=== PATIENT | female | born 1940 | race Caucasian/White ===

== ENCOUNTER → 2017-05-21 | Outpatient (CLI) | payer MEDICARE ==
[~2017-05-21] MED LIST: ALBU0.63 NEB; ALPR0.5T3 PO; ATOR20TA15 PO; CARV6.252 PO; CLOP75TA PO; ESCI10TA PO; FLUT1INH INH; KETO0.5S2 EACH EYE; LEVO112T2 PO; LEVO125T4 PO; LISI2.5T3 PO; LORA-373 PO
[2017-05-21 10:40] LABS: AUTOMATED NEUTROPHIL # 4.5 TH/MM3 (1.8-7.7); BASOPHIL # 0.1 TH/MM3 (0-0.2); BASOPHIL % 0.8 % (0.0-2.0); EOSINOPHIL # 0.1 TH/MM3 (0-0.4); EOSINOPHIL % 1.8 % (0.0-4.0); HEMATOCRIT 36.3 % (35.0-46.0); HEMO FLAGS DIFF FINAL; LYMPH % 21.7 % (9.0-44.0); LYMPHOCYTE # 1.4 TH/MM3 (1.0-4.8); MEAN CELL VOLUME 81.5 FL (80.0-100.0); MEAN CORPUSCULAR HEMOGLOBIN 26.7 PG (27.0-34.0); MEAN CORPUSCULAR HGB CONC 32.7 % (32.0-36.0); MONO % 7.3 % (0.0-8.0); NEUT % 68.4 % (16.0-70.0); PLATELET COUNT 311 TH/MM3 (150-450); RED BLOOD COUNT 4.45 MIL/MM3 (4.00-5.30); WHITE BLOOD COUNT 6.6 TH/MM3 (4.0-11.0)
[2017-05-21 10:52] LABS: APTT (PATIENT) 29.9 SEC (24.3-30.1); INTERNATIONAL NORMALIZED RATIO 0.9 RATIO; PROTHROMBIN TIME - PATIENT 10.4 SEC (9.8-11.6)
[2017-05-21 10:58] LABS: BACTERIA, URINE RARE /hpf; BLOOD, URINE NEG (NEG); COMMENT (UR) CULT NOT INDICATED; CULTURE IF INDICATED CULT NOT INDICATED; GLUCOSE,URINE NEG (NEG); KETONE, URINE TRACE mg/dL (NEG); MUCUS URINE FEW /lpf (OCC); NITRITE,URINE NEG (NEG); SQUAMOUS EPITHELIAL CELL URINE 2 /hpf (0-5); URINE COLOR YELLOW (YELLW/STRAW)
[2017-05-21 11:00] LABS: WESTERGREN SEDIMENTATION RATE 22 mm/hr (0-30)
[2017-05-21 11:16] LABS: ANION GAP 5 MEQ/L (5-15); AST (GOT) 14 U/L (15-37); BICARBONATE 28.1 MEQ/L (21.0-32.0); BLOOD UREA NITROGEN 16 MG/DL (7-18); CHLORIDE 104 MEQ/L (98-107); GLOMERULAR FILTRATION RATE 93 ML/MIN (>89); GLUCOSE,FASTING 88 MG/DL (74-99); POTASSIUM 3.9 MEQ/L (3.5-5.1); SODIUM (NA) 137 MEQ/L (136-145)
[2017-05-21 11:20] LABS: ALKALINE PHOSPHATASE 108 U/L (45-117); ALT (GPT) 15 U/L (10-53); TOTAL BILIRUBIN ADULT 0.9 MG/DL (0.2-1.0)
--- NOTE | 2017-05-21 13:03 | RADRPT ---
EXAM DATE/TIME: 05/21/2017 12:27 [facility] COMPARISON: No previous studies available for comparison. INDICATIONS : Evaluate for penumonia, pneumothorax, or communicable disease. MEDICAL HISTORY : None. SURGICAL HISTORY : None. ENCOUNTER: Initial ACUITY: 1 day PAIN SCORE: 0/10 LOCATION: chest FINDINGS: PA and lateral views of the chest demonstrate the lungs to be symmetrically aerated without evidence of mass, infiltrate or effusion. Surgical clips are noted in the right axilla. The cardiomediastinal contours are unremarkable. Osseous structures are intact. CONCLUSION: 1. No acute cardiopulmonary disease. Erickson Ralph MD on May 21, 2017 at 13:01 Board Certified Radiologist. This report was verified electronically.
== END ==
LOC: CPRE 09:05
PROVIDERS: ATTEND Orthopaedic Surgery Sports Medicine
DX: Z01.810 Encounter for preprocedural cardiovascular examination (principal); Z01.811 Encounter for preprocedural respiratory examination; Z01.812 Encounter for preprocedural laboratory examination; Z01.818 Encounter for other preprocedural examination; Z96.60 Presence of unspecified orthopedic joint implant; Z79.01 Long term (current) use of anticoagulants; M17.11 Unilateral primary osteoarthritis, right knee; M25.50 Pain in unspecified joint
CPT/HCPCS: 36415; 71020; 80053; 81001; 85025; 85610; 85652; 85730

== ENCOUNTER 2017-06-03 11:46 | Day surgery (SDC) | payer MEDICARE ==
[~2017-06-03] VITALS: Ht 154.9 cm; Wt 74.1 kg
[~2017-06-03 11:46] MED LIST changes: -ALBU0.63 NEB; -ATOR20TA15 PO; -FLUT1INH INH; -KETO0.5S2 EACH EYE; -LEVO112T2 PO; -LORA-373 PO
[2017-06-03] MEDS ORDERED: IOHEXOL 350 MG/ML 10 ML VIAL (for RAD DIAG) IVCONTRAST ONE (11:47)
[2017-06-03 12:05] VITALS: BP 141/67; PULSE 81; RESP 17; TEMP 98; O2SAT 99
[2017-06-03] MEDS ORDERED: ATOR20TA15 PO (12:37)
[2017-06-03] MEDS ORDERED: ALBU0.63 NEB (12:37)
[2017-06-03] MEDS ORDERED: FLUT1INH INH (12:37)
[2017-06-03] MEDS ORDERED: KETO0.5S2 EACH EYE (12:37)
[2017-06-03] MEDS ORDERED: LEVO112T2 PO (12:37)
[2017-06-03] MEDS ORDERED: LORA-373 PO (12:37)
[2017-06-03 12:39] LABS: AUTOMATED NEUTROPHIL # 4.3 TH/MM3 (1.8-7.7); BASOPHIL # 0.1 TH/MM3 (0-0.2); EOSINOPHIL # 0.1 TH/MM3 (0-0.4); EOSINOPHIL % 1.5 % (0.0-4.0); HEMATOCRIT 34.6 % (35.0-46.0); HEMO FLAGS DIFF FINAL; LYMPH % 23.8 % (9.0-44.0); LYMPHOCYTE # 1.6 TH/MM3 (1.0-4.8); MEAN CELL VOLUME 80.9 FL (80.0-100.0); MEAN CORPUSCULAR HEMOGLOBIN 26.5 PG (27.0-34.0); MEAN CORPUSCULAR HGB CONC 32.8 % (32.0-36.0); MONO % 7.8 % (0.0-8.0); NEUT % 65.9 % (16.0-70.0); PLATELET COUNT 273 TH/MM3 (150-450); RED BLOOD COUNT 4.28 MIL/MM3 (4.00-5.30); RED CELL DISTRIBUTION WIDTH 14.8 % (11.6-17.2); WHITE BLOOD COUNT 6.5 TH/MM3 (4.0-11.0)
[2017-06-03 12:51] LABS: APTT (PATIENT) 29.1 SEC (24.3-30.1); INTERNATIONAL NORMALIZED RATIO 0.9 RATIO; PROTHROMBIN TIME - PATIENT 10.4 SEC (9.8-11.6)
[2017-06-03 12:55] LABS: BICARBONATE 26.1 MEQ/L (21.0-32.0); POTASSIUM 4.1 MEQ/L (3.5-5.1)
[2017-06-03] MEDS ORDERED: diphenhydrAMINE HCL 50 MG CAP PO SCH (13:15)
[2017-06-03] MEDS ORDERED: NS 1000P @30 MLS/HR (KVO) IV SCH (13:15)
[2017-06-03] MEDS ORDERED: HEPARIN-NS/PF INJ 1,000 ML ONE (13:22)
[2017-06-03] MEDS ORDERED: NITROGLYCERIN INJ 5 ML ONE (13:23)
[2017-06-03] MEDS ORDERED: MIDAZOLAM HCL 2 MG/2 ML VIAL ONE ×2 (13:23→13:37)
[2017-06-03] MEDS ORDERED: HEPARIN SODIUM - IV 10,000 UNITS/10 ML VIAL ONE (13:23)
[2017-06-03] MEDS ORDERED: VERAPAMIL HCL 5 MG/2 ML VIAL ONE (13:23)
--- NOTE | 2017-06-03 13:23 | RADRPT ---
EXAM DATE/TIME: 06/03/2017 12:54 [facility] COMPARISON: CHEST PA & LAT, May 21, 2017, 12:27. INDICATIONS : Evaluate for pneumonia, pneumothorax or communicable disease. Pre op for aortic catheter workup MEDICAL HISTORY : Myocardial infarction. hx of right breast cancer SURGICAL HISTORY : Coronary artery stent. ENCOUNTER: Initial ACUITY: 1 day PAIN SCORE: 0/10 LOCATION: Bilateral chest FINDINGS: Single portable frontal view of the chest shows mild chronic interstitial changes within the bases. T hese are stable. No infiltrate or effusion. Heart is at the upper limits of normal in terms of size. Surgical clips involve the right axilla. Mildly gas distended loops of small bowel within the visuali zed portions of the upper abdomen. CONCLUSION: 1. No acute cardiopulmonary disease. 2. Mildly gas distended loops of small bowel within the visualized portions of the upper abdomen. Adam Rachel Jr., MD on June 03, 2017 at 13:15 Board Certified Radiologist. This report was verified electronically.
[2017-06-03] MEDS ORDERED: IOHEXOL 350 MG/ML 100 ML BTL (for Cath Lab) OTHER ONE (13:35)
[2017-06-03] MEDS ORDERED: IOHEXOL 350 MG/ML 50 ML BTL (for Cath Lab) OTHER ONE (13:35)
[2017-06-03] MEDS ORDERED: CLOPIDOGREL 300 MG TAB ONE (14:19)
[2017-06-03] MEDS ORDERED: ASPIRIN 81 MG CHEW TAB ONE (14:19)
[2017-06-03 20:49] LABS: BLOOD, URINE TRACE (NEG); COMMENT (UR) CULTURE INDICATED; CULTURE IF INDICATED CULTURE INDICATED; GLUCOSE,URINE NEG (NEG); KETONE, URINE TRACE mg/dL (NEG); MUCUS URINE FEW /lpf (OCC); NITRITE,URINE NEG (NEG); PH, URINE 6.5 (5.0-8.5); SQUAMOUS EPITHELIAL CELL URINE 37 /hpf (0-5); TRANSITIONAL EPI CELLS, URINE 1 /hpf; URINE COLOR LIGHT-YELLOW (YELLW/STRAW)
--- NOTE | 2017-06-04 08:04 | RADRPT ---
EXAM DATE/TIME: 06/03/2017 17:56 [facility] COMPARISON: No previous studies available for comparison. INDICATIONS : Pre-operative TAVR. IV CONTRAST: 99 cc Omnipaque 350 (iohexol) IV RADIATION DOSE: 42.99 CTDIvol (mGy) MEDICAL HISTORY : Carcinoma, breast. Myocardial infarction. Chronic obstructive pulmonary disease. SURGICAL HISTORY : Coronary artery stent. ENCOUNTER: Initial ACUITY: 1 day PAIN SCALE: 2/10 LOCATION: Bilateral chest TECHNIQUE: Volumetric scanning was performed using a multi-row detector CT scanner. The data was post processed with a variety of visualization algorithms including full volume maximum intensity projection, multi -planar sliding thin slab reformation, curved planar reformation, and surface rendering techniques. Using automated exposure control and adjustment of the mA and/or kV according to patient size, radiat ion dose was kept as low as reasonably achievable to obtain optimal diagnostic quality images. DIC OM format image data is available electronically for review and comparison. FINDINGS: Thoracic/abdominal aorta: 3 cusps are seen involving the aortic valve. These are somewhat thickened with areas of calcification associated with them. The thoracic and abdominal aorta is normal in caliber. Sinus of Valsalva measu res 3.1 cm, sinotubular junction 2.4 cm, mid tubular 3.2 cm, proximal descending 2.3 cm, distal desce nding 2.3 cm, and infrarenal 1.7 cm in diameter. In-Flow vessels are patent. A four-vessel arch is se en with a t or artery arising from the arch. Calcified plaque involving the origin of the left renal artery generate a 30-40% stenosis. Arch vessels are otherwise patent. The celiac, SMA, SCARLETT, renal art eries, and In-Flow vessels are patent. Heart and mediastinum: The heart is normal in size. No pericardial effusion. Significant coronary artery atherosclerotic gayla cifications. Pulmonary arteries are normal in caliber. No mediastinal mass or adenopathy. Lung parenchyma: No effusions or pneumothoraces. Chronic interstitial changes. A calcified granuloma is seen within th e left lower lobe. Other structures: Diffuse hepatic steatosis. Gallbladder is unremarkable. Small granulomatous calcifications involving the spleen. Colonic diverticulosis most pronounced within the sigmoid region. No acute inflammation. Bilateral femoral neck screws. Old trauma involving the pubic symphysis bilaterally. A degenerative l umbar spine. CONCLUSION: 1. 3 cusps involving aortic valve which are somewhat thickened and have calcifications associated wit h them. 2. Thoracoabdominal aorta is normal in caliber throughout. 3. 4 vessels involving the arch with the left vertebral artery arising from the arch. There is a calc ified plaque generating a 40% stenosis of the left vertebral artery origin. The right vertebral arter y is patent within its visualized aspect. 4. Chronic interstitial changes along the lungs. 5. Prior granulomatous disease. 6. Hepatic steatosis. 7. Sigmoid diverticulosis. Adam Rachel Jr., MD on June 04, 2017 at 7:52 Board Certified Radiologist. This report was verified electronically.
--- NOTE | 2017-06-04 11:57 | ECHRPT ---
Indication: PRE TAVR AOV CONCLUSIONS Normal left ventricular size. Wall thickness is normal. The left ventricular systolic function is severely reduced with an estimated ejection fraction in th e range of 35-40%. There is diffuse global hypokinesis with distinct regional wall motion abnormalities. The left atrial size is moderately dilated. Moderate mitral valve regurgitation. Moderate mitral annular calcification. Lkja-xz-zxrmkqpf aortic valve regurgitation. Severe aortic valve stenosis. There is mild tricuspid valve regurgitation. There is estimated moderate pulmonary hypertension present (range 50-60 mmHg). BP: 141 / 67 HR: Rhythm: Sinus MEASUREMENTS (Male / Female) Normal Values Technical Quality:Fair 2D ECHO LV Diastolic Diameter PLAX 5.0 cm 4.2 - 5.9 / 3.9 - 5.3 cm LV Systolic Diameter PLAX 4.6 cm IVS Diastolic Thickness 0.8 cm 0.6 - 1.0 / 0.6 - 0.9 cm LVPW Diastolic Thickness 0.8 cm 0.6 - 1.0 / 0.6 - 0.9 cm LV Relative Wall Thickness 0.3 LVOT Diameter 1.9 cm Aortic Root Diameter 2.3 cm LA Systolic Diameter LX 3.5 cm 3.0 - 4.0 / 2.7 - 3.8 cm DOPPLER AV Peak Velocity 401.0 cm/s AV Peak Gradient 64.3 mmHg AV Mean Gradient 36.0 mmHg AV Velocity Time Integral 87.5 cm LVOT Peak Velocity 88.4 cm/s LVOT Peak Gradient 3.1 mmHg LVOT Velocity Time Integral 17.9 cm AV Area Cont Eq vti 0.6 cm AV Area Cont Eq pk 0.6 cm Mitral E Point Velocity 110.0 cm/s Mitral A Point Velocity 27.1 cm/s Mitral E to A Ratio 4.1 LV E' Lateral Velocity 2.5 cm/s Mitral E to LV E' Lateral Ratio 43.5 LV E' Septal Velocity 3.7 cm/s Mitral E to LV E' Septal Ratio 29.7 TR Peak Velocity 328.0 cm/s TR Peak Gradient 43.0 mmHg Right Atrial Pressure 10.0 mmHg Pulmonary Artery Systolic Pressu 53.0 mmHg Right Ventricular Systolic Press 53.0 mmHg PV Peak Velocity 75.9 cm/s PV Peak Gradient 2.3 mmHg FINDINGS LEFT VENTRICLE Normal left ventricular size. Wall thickness is normal. The left ventricular systolic function is severely reduced with an estimated ejection fraction in th e range of 25-30%. There is diffuse global hypokinesis with distinct regional wall motion abnormalities. LEFT ATRIUM The left atrial size is moderately dilated. MITRAL VALVE Moderate mitral valve regurgitation. Moderate mitral annular calcification. AORTIC VALVE Aortic valve sclerosis is present. Qfiu-[id number]-[id number] aortic valve regurgitation. Moderate to severe aortic valve stenosis. TRICUSPID VALVE There is mild tricuspid valve regurgitation. There is estimated moderate pulmonary hypertension present (range 50-60 mmHg). Tomas Kothari MD (Electronically Signed) Final Date:04 June 2017 11:57
--- NOTE | 2017-06-04 17:24 | PD.CAR.PN ---
CVT Progress Note Subjective/Hospital Course: sts data discussed with pt RISK SCORES About the STS Risk Calculator Procedure: AV Replacement Risk of Mortality: 3.532% Morbidity or Mortality: 17.465% Long Length of Stay: 8.629% Short Length of Stay: 28.029% Permanent Stroke: 1.595% Prolonged Ventilation: 13.218% DSW Infection: 0.305% Renal Failure: 3.528% Reoperation: 7.228% Result Diagram: 06/03/17 1212 06/03/17 1212 Margarita Cobos Jun 04, 2017 17:24
--- NOTE | 2017-06-07 08:04 | MB ---
cc: MATHEW PALOMARES DATE OF CONSULTATION: 06/21/2017 DATE OF : 1940 REASON FOR CONSULTATION: 77-year-old female patient of Dr. Hyacinth Brunson, Dr. Frazier. The patient presented because of history of shortness of breath, fatigue over the past year, also some chest pressure 6 months, worse in the last few weeks. She was apparently scheduled for right knee surgery was cancelled she needed clearance by cardiology. She underwent echocardiogram which at that time showed, aortic stenosis with a valve area of 0.9. Repeat echo was done on the which showed severe aortic stenosis with a valve area 0.6. Peak gradient of 64, mean gradient of 36, also ejection fraction of 25 to 30% diffuse global high hypokinesis some left atrial size moderately dilated, moderate mitral valve regurgitation. She also had some mild to moderate aortic insufficiency and some mild tricuspid regurgitation. Her pulmonary pressures were in the 50-60 range. She underwent cardiac cath by Dr. Frazier and had an 80% RCA occlusion underwent drug-eluting stent to the RCA. We have been consulted to evaluate candidacy for aortic valve replacement versus transaortic valve replacement. Her frailty score was 2/4. PAST MEDICAL HISTORY: Significant for 1. Coronary artery disease. 2. She has had prior stenting at the RCA, LAD and circ. 3. She has history of transient ischemic attack. 4. History of breast cancer. Where she had a right lumpectomy 30 years ago with chemo and radiation. 5. She has had bilateral hip surgery 6. Chronic obstructive pulmonary disease. 7. Depression 8. Diverticulitis. 9. Fatigue. 10. Gastroesophageal reflux disease. 11. Hyperlipidemia. 12. Hypertension. 13. Hypothyroidism. 14. Ischemic cardiomyopathy 15. Mitral regurgitation. 16. History of prior Non-STEMI. ALLERGIES CODEINE SIMVASTATIN HOME MEDICATIONS home meds include 1. Atorvastatin 2. Breo 3. Elliptic 4. Coreg 5. Plavix 6. Lexapro 7. Levothyroxine. 8. Lisinopril. 9. Lorazepam. FAMILY HISTORY Mother from an myocardial infarction. SOCIAL HISTORY Patient , two children Remote tobacco. No alcohol. Retired teacher. She is somewhat inactive because of her chronic right knee pain. She does however drive and cook. REVIEW OF SYSTEMS Review of systems in general no night sweats, fever, heat and cold intolerance. SKIN: No psoriasis, itching or hives. HEAD, EARS, EYES, NOSE, AND THROAT: No blurred vision, hearing loss. RESPIRATORY: Positive first recent shortness of breath. CARDIOVASCULAR: As above in HPI. GASTROINTESTINAL: No diarrhea, vomiting. GENITOURINARY: No burning frequency, urgency. CENTRAL NERVOUS SYSTEM: Positive for history of TIA, ENDOCRINOLOGY: No history of diabetes. Positive for hypothyroidism. PHYSICAL EXAMINATION: VITAL SIGNS: On exam blood pressure 140/60, heart rate of 80, temperature 98.0. IN GENERAL: Patient is awake, alert, no acute distress head is normocephalic, atraumatic. HEAD, EYES, EARS, NOSE, AND THROAT: Pupils equal and reactive. Oral mucosa pink, moist. NECK: Supple. No JVD. Heart sounds S1-S2 regular rate and rhythm. There is a inaudible 3/6 systolic murmur best noted left sternal border. LUNGS: Clear to auscultation. No wheezes, rales or rhonchi. ABDOMEN: Soft, nontender. No masses or organomegaly. EXTREMITIES: No cyanosis, clubbing or edema. RADIOLOGY: 2-D echo as above in the in the HPI. Her EKG shows a sinus rhythm with a left bundle-branch block. Her PFT shows an FEV-1 of 1.04. IMPRESSION This is a very pleasant 77-year-old female with severe aortic stenosis also moderate mitral regurgitation valve area 0.6. Her risk factors include history of coronary artery disease, ischemic cardiomyopathy with EF of 20-25%. Frailty score of 2/4. STS risk mortality 3.532. RECOMMENDATIONS: At this time recommendation is for evaluation for transaortic valve replacement to her low ejection fraction, Garza class three heart failure and further evaluation as per our partner Dr. Deanna Shetty. DICTATED BY: YESSICA Massey-Jonah MD LUIS Issa/cristina /5:27 PM /8:00 AM
--- NOTE | 2017-06-08 10:09 | RSPPFT ---
DATE OF PROCEDURE: 06/03/17 COMMENTS: Spirometry with FVC of 1.5 predicted 2.6, FEV1 of 1.0 predicted 1.8, FEV1/FVC ratio 68% predicted 80%. IMPRESSION: On the basis of the above, patient has an obstructive lung defect. Post-bronchodilator values and lung volumes have not been measured.
--- NOTE | 2017-06-09 12:57 | MB ---
cc: MARIA LUZ KRAMER M.D., PEDRO KHANNA, SOHIT K. MD DATE OF CONSULTATION: 06/09/[address] Frazier REASON FOR CONSULTATION Surgical opinion regarding aortic valve replacement therapy. HISTORY OF PRESENT ILLNESS Ms. Cuevas is a very pleasant 77-year-old female with a known history of coronary artery disease, status post previous stenting of the coronary vessels, who now presents with progressive symptoms of shortness of breath. She has undergone further workup including an echocardiogram which revealed severe aortic stenosis with an aortic valve area of 0.6 cm2 with a mean gradient of 36 and ejection fraction of 25-30% with diffuse global hypokinesis. Based on this she was seen by Dr. Frazier and by Dr. Jose and had undergone further workup regarding aortic valve replacement therapy including surgical versus TAVR therapy. I am now seeing her in consultation for a second surgical opinion. At present time she is relatively comfortable, resting in her bed with no acute decompensation. PAST MEDICAL HISTORY 1. Significant coronary disease status post prior stenting as described above. 2. History of TIA. 3. History of breast cancer. 4. History of bilateral hip surgeries. 5. COPD. 6. Depression. 7. Diverticulitis. 8. Fatigue. 9. GERD. 10. Hyperlipidemia. 11. Hypertension. 12. Hypothyroidism. 13. Ischemic cardiomyopathy with severe left ventricular dysfunction. 14. Prior history of acute myocardial infarction. PAST SURGICAL HISTORY Significant for: 1. Hip surgeries. 2. Breast lumpectomy followed by chemoradiation. ALLERGIES The patient reports allergies to CODEINE AND SIMVASTATIN. MEDICATIONS home medications include: 1. Atorvastatin. 2. Brio. 3. Aliptic. 4. Coreg. 5. Plavix. 6. Lexapro. 7. Levothyroxine. 8. Lisinopril. 9. Lorazepam. FAMILY HISTORY Significant for coronary artery disease. SOCIAL HISTORY Denies any history of smoking, alcohol use or illicit drug use. REVIEW OF SYSTEMS Review of systems as above. All other parameters are negative. PHYSICAL EXAMINATION VITAL SIGNS: Today she is 154 cm tall, weighs 74 kilos. Blood pressure is 117/66 with a heart rate of 78 which is regular, respiratory rate 18 and she is afebrile. HEENT: Normocephalic, atraumatic. Pupils are round and reactive. Extraocular muscles intact. No cervical lymphadenopathy, carotid bruits or JVD. CARDIOVASCULAR: Regular rate and rhythm. Normal S1-S2 without gallops or rubs. She does have a 4/6 systolic ejection murmur at the right parasternal border. LUNGS: Clear to auscultation bilaterally with good exchange. ABDOMEN: Soft, nontender, nondistended. Normoactive bowel sounds. No hepatosplenomegaly. Bilateral femoral pulses are palpable with no palpable pedal pulses. No cyanosis, clubbing, edema, no venous varicosities. NEUROLOGIC: Neurologically intact with no focal deficits. IMPRESSION 1. Severe symptomatic aortic stenosis. 2. Ischemic cardiomyopathy with severe left ventricular dysfunction. 3. Coronary artery disease. 4. Hyperlipidemia. 5. TIA. 6. Hypertension. 7. COPD. PLAN The clinical, echo as well as angiographic findings were discussed in detail with the patient and her daughter today. Therapeutic options available again including a surgical AVR versus TAVR were discussed and detailed. I agree that she is intermediate risk for surgical intervention and given her frailty and significant medical comorbidities as well as ventricular dysfunction, I think she will maximally benefit from TAVR therapy. They understand, they are provided information and are in agreement with the plan. We will proceed with TAVR as scheduled previously. Thank you for allowing me to participate in this patient's care. Deanna MELGOZA /11:46 AM /12:32 PM
--- NOTE | 2017-06-10 11:37 | MA ---
cc: WILFRID RIOS DATE: 06/03/2017 1938 PROCEDURE PERFORMED 1. Left heart catheterization. 2. Selective right and left coronary angiography. 3. Successful PCI/LOPEZ to ostial right coronary artery. INDICATION Chest pain, shortness of breath, severe symptomatic aortic stenosis, preoperative evaluation. APPROACH Right transradial. DESCRIPTION OF PROCEDURE Consent is signed. The patient was prepped and draped in sterile fashion, using 1% lidocaine for local anesthesia and a micropuncture kit, a 6-[place] sheath was inserted into the right radial artery. Antispasmodic cocktail was given, then selective right and left coronary angiography was performed with a JR-4 and a JL-4 diagnostic catheters. Angiography was taken in multiple views. We identified significant lesion in the proximal to ostial segment of the right coronary artery where previous stent was placed and this lesion was amendable to intervention for which we proceeded to fix. IV heparin was given for anticoagulation. The right coronary artery was engaged with a 3DRC guide. The vessel was wired with a run-through wire which was anchored in the distal PDA. We proceeded then with pre-dilating the vessel with a 2.5 12 balloon to high atmospheres and this was followed by insertion and deployment of a 2.75 12 drug-eluting stent which was postdilated with a stent balloon and the overlapping stent in the ostial right coronary artery was also ballooned with a stent balloon. Final angiographic views revealed good stent position and expansion with DOMINIK III flow and nonobstructing coronary artery disease. The patient tolerated the procedure well without complications. Estimated blood loss less than 30 ccs. Total contrast used was 75 ccs. CONCLUSION 1. Successful PCI to proximal right coronary artery in the setting of in stent restenosis. 2. Severe symptomatic aortic stenosis. RECOMMENDATIONS The patient will be transferred to the [facility] for post cath care. She will be started on aspirin and Plavix. She will continue a TAVR workup as planned and will be getting IV hydration for the next 4 hours. If the patient remains stable she will be able to be discharged home today with follow up with cardiology in a week. Thank you for the opportunity to take part in the care of this patient. Further therapy to be determined Wilfrid Rios MD SYSTEM SUPPORT ANALYST/TLL /11:08 AM /11:17 AM
== END 2017-06-03 19:00 | disposition home or self-care (01) ==
LOC: HDOC 11:46 → HDIC 11:48 → HDOC 19:00
PROVIDERS: ATTEND Radiology Vascular & Interventional Radiology
DX: I25.10 Atherosclerotic heart disease of native coronary artery without angina pectoris (principal); I35.0 Nonrheumatic aortic (valve) stenosis; I34.0 Nonrheumatic mitral (valve) insufficiency; I35.1 Nonrheumatic aortic (valve) insufficiency; I25.5 Ischemic cardiomyopathy; I10 Essential (primary) hypertension; I25.2 Old myocardial infarction; J44.9 Chronic obstructive pulmonary disease, unspecified; E78.5 Hyperlipidemia, unspecified; E03.9 Hypothyroidism, unspecified; K21.9 Gastro-esophageal reflux disease without esophagitis; F32.9 Major depressive disorder, single episode, unspecified; R82.90 Unspecified abnormal findings in urine; Z86.73 Personal history of transient ischemic attack (TIA), and cerebral infarction without residual deficits; Z95.5 Presence of coronary angioplasty implant and graft; Z85.3 Personal history of malignant neoplasm of breast
CPT/HCPCS: 71010; 74174; 80048; 81001; 82040; 85002; 85025; 85610; 85730; 86850; 86900; 86901; 87086; 87641; 92928; 93308; 93454; 94010; C1725; C1769; C1874; C1887; C1893; J1644; J2250; J3010; J7030; Q9967

== ENCOUNTER 2017-06-09 08:33 | Inpatient (IN) | payer MEDICARE ==
[~2017-06-09] VITALS: Ht 154.9 cm; Wt 78.5 kg
[2017-06-09] VITALS (8 sets, daily range): BP systolic 117–145; BP diastolic 66–76; PULSE 74–104; RESP 16–18; TEMP 96.8–97.7; O2SAT 95–99
[~2017-06-09 08:33] MED LIST changes: +ALBU0.63 NEB; -ALPR0.5T3 PO; +ATOR20TA15 PO; +FLUT1INH INH; +KETO0.5S2 EACH EYE; +LEVO112T2 PO; -LEVO125T4 PO; +LORA-373 PO
[2017-06-09] MEDS ORDERED: SODIUM CHLORID 0.9% 500 ML IV PRN (09:00)
[2017-06-09] MEDS ORDERED: INSULIN HUMAN REGULAR 1,000 UNITS/10 ML VIAL SQ PRN (09:00)
[2017-06-09] MEDS ORDERED: CHLORHEXIDINE GLUCONATE 2 % 1 PACK (2 CLOTHS) TOPICAL PRN (09:00)
[2017-06-09] MEDS ORDERED: METOPROLOL TARTRATE 25 MG TAB PO PRN (09:00)
[2017-06-09] MEDS ORDERED: LACTATED RINGER'S 1000 ML IV PRN (09:00)
[2017-06-09] MEDS ORDERED: POVIDONE IODINE 5% (ANTISEPSIS KIT) 4 APPLICATIONS EACH NARE PRN (09:00)
[2017-06-09] MEDS ORDERED: MUPIROCIN 2% OINT 1 APPLIC/GM SYRINGE EACH NARE PRN (09:15)
[2017-06-09] MEDS ORDERED: ceFAZolin 2 GM PREMIX 50 ML IV PRN (09:15)
[2017-06-09] MEDS ORDERED: SODIUM CHLOR 0.9% 1000 ML 1,000 ML IV SCH (09:30)
[2017-06-09] MEDS ORDERED: ASPIRIN 325 MG TAB PO SCH (09:30)
[2017-06-09 09:48] LABS: AUTOMATED NEUTROPHIL # 4.2 TH/MM3 (1.8-7.7); BASOPHIL # 0.1 TH/MM3 (0-0.2); BASOPHIL % 0.9 % (0.0-2.0); EOSINOPHIL # 0.2 TH/MM3 (0-0.4); EOSINOPHIL % 2.7 % (0.0-4.0); HEMATOCRIT 33.1 % (35.0-46.0); HEMO FLAGS DIFF FINAL; LYMPH % 17.6 % (9.0-44.0); MEAN CORPUSCULAR HEMOGLOBIN 26.9 PG (27.0-34.0); MEAN CORPUSCULAR HGB CONC 33.2 % (32.0-36.0); MONO % 6.9 % (0.0-8.0); NEUT % 71.9 % (16.0-70.0); PLATELET COUNT 243 TH/MM3 (150-450); RED BLOOD COUNT 4.09 MIL/MM3 (4.00-5.30); RED CELL DISTRIBUTION WIDTH 15.1 % (11.6-17.2); WHITE BLOOD COUNT 5.8 TH/MM3 (4.0-11.0)
[2017-06-09 09:55] LABS: APTT (PATIENT) 29.4 SEC (24.3-30.1); INTERNATIONAL NORMALIZED RATIO 0.9 RATIO; PROTHROMBIN TIME - PATIENT 10.2 SEC (9.8-11.6)
[2017-06-09 10:01] LABS: BICARBONATE 24.2 MEQ/L (21.0-32.0)
[2017-06-09] MEDS ORDERED: VANCOMYCIN HCL 1000 MG VIAL ONE (10:08)
[2017-06-09] MEDS ORDERED: SODIUM CHLOR 0.9% 250 ML INJ 250 ML ONE (10:08)
--- NOTE | 2017-06-09 13:59 | EKG ---
Date Performed: 06/09/2017 Time Performed: 10:07:18 PTAGE: 77 years EKG: Sinus rhythm with borderline 1st degree A-V block. Left bundle branch block Abnormal ECG NO PREVIOUS TRACING DOCTOR: John Isbell Interpretating Date/Time 06/09/2017 13:54:55
[2017-06-09] MEDS ORDERED: HEPARIN-NS/PF INJ 2,500 ML ONE (14:10)
--- NOTE | 2017-06-09 14:17 | MH ---
cc: WILFRID RIOS DATE OF ADMISSION: 06/09/2017 DATE OF : 1940 REASON FOR ADMISSION Severe symptomatic aortic stenosis for an elective transcutaneous aortic valve replacement. HISTORY OF PRESENT ILLNESS 77-year-old female with past medical history significant for severe symptomatic aortic stenosis, depressed LV systolic function, COPD, TIA, breast cancer status post radiation in 1979, hypertension, hyperlipidemia, that has been complaining of worsening shortness of breath on minimal exertion. She was found to have severe aortic stenosis by surface echocardiogram and she was referred to the structural heart team for evaluation. After thorough evaluation she was deemed to be an intermediate risk for open aortic valve surgery and was referred for TAVR. Today she remains feeling well. She denies any chest pain, syncope, palpitations, nausea, vomiting, diarrhea, fevers, chills, PND or leg edema. Review of systems is negative except for what is mentioned in the HPI. PAST MEDICAL HISTORY 1. CAD status post PCI/LOPEZ to ostial right coronary artery. 2. Severely reduced systolic dysfunction with EF of 20%. 3. COPD. 4. TIA. 5. Breast cancer status post radiation. 6. Hypertension. 7. Hyperlipidemia. 8. Atrial Myxoma SOCIAL HISTORY Denies illicit drug use, smoking or alcohol abuse. MEDICATIONS Cardiac medications: 1. Plavix 75 mg p.o. daily. 2. Lipitor 20 mg p.o. daily. 3. Coreg 6.25 mg p.o. b.i.d. 4. Lisinopril 2.5 mg p.o. daily. PHYSICAL EXAMINATION VITAL SIGNS: Temperature 97, respiratory rate 20, blood pressure 120/80. O2 sat is 100% in room air. GENERAL: She is awake, alert, oriented x3, in no acute distress. NECK: No JVD. No carotid bruits. HEART: Regular rate and rhythm. A 3/6 systolic ejection murmur in the aortic focus. LUNGS: Clear to auscultation bilaterally. EXTREMITIES: No cyanosis or edema. Pulses throughout. LABORATORY Hemoglobin 11, hematocrit 33, platelet count 243. INR 0.9. Sodium 139, potassium 4.0, BUN 13, creatinine 0.56. TAVR WORK-UP STS score 3.5%, frailty 2/4. EKG Sinus rhythm with left bundle branch block. PFTs show mild obstructive lung disease. Echo shows an aortic valve velocity of 4, aortic valve gradient 36, calculated valve area 0.6, and ejection fraction 25%. CORONARY ANGIOGRAM: Right coronary artery blockage which was successfully stented with a drug-eluting stent. TAVR CTA Annular area of 441.3 mm. ILIAC CTA Minimal luminal diameter on the right of 7.3 , on the left 7.6. She has been seen by Dr. Shetty and Dr. Jose which have deemed her intermediate risk for open AVR due to frailty, co-morbidities and STS score. ASSESSMENT AND PLAN 77-year-old female with severe symptomatic aortic stenosis with depressed LV systolic function, CAD status post PCI, COPD, hypertension and hyperlipidemia. She has been admitted for percutaneous repair of the aortic valve in the setting of intermediate risk for AVR. The risks and benefits of TAVR including but not limited to neurovascular trauma, infection, bleeding, acute kidney injury, stroke, complete heart block needing permanent pacemaker, emergent bypass surgery and have been explained to the patient. The patient understands the risks and she is willing to proceed. Keep n.p.o. for TAVR today. MD JOSE DANIEL Nina/BT /1:43 PM /1:57 PM [facility]
[2017-06-09] MEDS ORDERED: PROTAMINE SULFATE 50 MG/5 ML VIAL ONE (14:42)
[2017-06-09] MEDS ORDERED: HEPARIN SODIUM - IV 10,000 UNITS/10 ML VIAL ONE (14:42)
[2017-06-09] MEDS ORDERED: IOHEXOL 350 MG/ML 100 ML BTL (for RAD DIAG) OTHER ONE (15:15)
--- NOTE | 2017-06-09 16:07 | PD.OP ---
cc: Tomas Kothari MD; Yani Jose MD; John Isbell MD Operative Report Date of Surgery: Jun 09, 2017 Preoperative Diagnosis: (1) Aortic stenosis, severe (2) Diastolic CHF due to valvular disease (3) Exertional dyspnea Postoperative Diagnosis: same Left atrial mass Procedure: Transcatheter aortic valve replacement with a 26 Pinky 3 tissue valve Balloon aortic valvuloplasty with a 20 True Balloon Percutaneous bilateral femoral artery access with Perclose closure on the right aortography Fluoroscopy Anesthesia: Dr. Howe Surgeon: aYni Jose Co-surgeon - Dr. Frazier Software Implementation Project Manager(s): Dr. Isbell Operation and Findings: The risks, benefits, complications, treatment options, and expected outcomes were discussed with the patient. The possibilities of reaction to medication, pulmonary aspiration, perforation of viscus, bleeding, recurrent infection, the need for additional procedures, failure to diagnose a condition, and creating a complication requiring transfusion or operation were discussed with the patient. The patient concurred with the proposed plan, giving informed consent. The site of surgery properly noted/marked. The patient was taken to the hybrid operating room, identified as Pamella Cuevas and the procedure verified as Transcatheter Aortic Valve Replacement. A Time Out was held and the above information confirmed. Standard monitoring lines and Xavier catheter were placed. General anesthesia was induced. The patient was prepped and draped in a sterile fashion. 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 This measured ~1 cm. This was discussed with the patient's daughter. Her decision was to proceed with TAVR with follow-up for the left atrial mass. Initially, left femoral arterial access was acquired using a Seldinger percutaneous technique. The details of this procedure were dictated under separate note by cardiology. Once a pigtail was positioned in the aortic annulus and a temporary transvenous pacemaker wire was placed in the right ventricular apex and tested, the right femoral artery was accessed using a needle followed by a guidewire under fluoroscopic guidance. Serial dilators were used to dilate the left femoral artery to 14 Pashto caliber. The Morrow sheath was then inserted into the right femoral artery up to the distal aorta. Arch aortography was performed to define the implant view. A balloon aortic valvuloplasty was then performed using a 20 x 6 True balloon with the patient being paced at 180 beats per minute. A 26 Morrow Pinky 3 transcatheter aortic valve was then positioned in the annulus and deployed with the patient being paced at 180 beats per minute. Following deployment, the valve apparatus was withdrawn and JUAN was performed to assess the valve. The valve had no significant perivalvular leaks. Gradients were then measured and the sheath was slowly withdrawn to the distal left common iliac artery under fluoroscopic guidance. The sheath was removed and the artery secured with Perclose devices. Protamine was administered. Sterile dressings were placed. At the end of the operation, all sponge, instruments, and needle counts were correct. The patient was transferred to the CVICU in stable condition. Implants: 26 Pinky 3 tissue valve Complications: none Disposition: to CVICU instable condition Yani Jose MD Jun 09, 2017 16:07
[2017-06-09] MEDS ORDERED: SODIUM CHLOR 0.9% 1000 ML INJ 1,000 ML IV SCH (16:13)
[2017-06-09] MEDS ORDERED: ATROPINE SULFATE 1 MG/ML VIAL IV PUSH PRN (16:15)
[2017-06-09] MEDS ORDERED: DEXTROSE 50% IN WATER 50 ML VIAL(D50) IV PUSH PRN (16:15)
[2017-06-09] MEDS ORDERED: GLUCAGON 1 MG/ML VIAL OTHER PRN (16:15)
[2017-06-09] MEDS ORDERED: MISC INFORMATION OTHER ONE (16:15)
--- NOTE | 2017-06-09 16:25 | PD.CARD ---
Cardiology Procedure Note Procedure Name: Right TF TAVR Procedure Date: Jun 09, 2017 Procedure Note: PREOPERATIVE DIAGNOSIS - Severe aortic stenosis with depressed LV systolic function - Symptoms: shortness of breath, fatigue, recurrent heart failure. [place] [employer] III. - Chronic Systolic Heart Failure - Hypertension, - Hyperlipidemia, - DM II - TIA - Breast CA - CAD s/p PCI/LOPEZ to RCA - Frailty 2/4 - STS 3.5% - Small atrial myxoma PREOPERATIVE DIAGNOSIS - Severe aortic stenosis with depressed LV systolic function - Symptoms: shortness of breath, fatigue, recurrent heart failure. [place] [employer] III. - Chronic Systolic Heart Failure - Hypertension, - Hyperlipidemia, - DM II - TIA - Breast CA - CAD s/p PCI/LOPEZ to RCA - Frailty 2/4 - STS 3.5% - Small atrial myxoma OPERATIVE PROCEDURE - Right Transfemoral Transcatheter aortic valve replacement with a 26mm S3 Morrow Sapiens Valve, - Balloon aortic valvuloplasty with a 20mm True balloon. - Aortic root angiogram. - Placement of a pigtail catheter for angiography. - Temporary pacemaker insertion. - Perclose right common femoral arteries. ANESTHESIA Dr. Howe SURGEONS Dr. Yani Jose METROLOGY TECHNICIAN Blending Plant Operator: Dr. Tomas Kothari Debrander: Dr. John Isbell. Echo support: Dr. Rodriguez Isabel. INDICATIONS 77year-old female with severe symptomatic aortic stenosis with progressive symptom of heart failure. The patient has been evaluated for aortic replacement and the patient was felt to be high risk for conventional aortic valve replacement by Dr. Shetty and Dr. Jose on the basis of frailty, STS score and comorbidities. She has been evaluated for and accepted for transcatheter aortic valve replacement (TAVR) after extensive review of patient' s chart. The risk of the procedure have been discussed with the patient at length and consents have been signed to proceed as planned. PROCEDURE DESCRIPTION Under general anesthesia a Transesophageal echocardiogram probe was placed in the esophagus and used throughout the procedure to evaluate aortic valve as well as other valve structures. Intraoperative transesophageal echo confirmed severe aortic stenosis with preserved EF. Then using 1% Lidocaine for local anesthesia and a micropuncture kit a right femoral artery was entered percutaneously and a 6 Mozambican sheath was inserted in the left common femoral artery. A the pigtail catheter was advanced over a J 0.035 wire around the arch of the aorta and placed in the noncoronary cusp for aortic angiography in order to get multiple views for deployment of the S3 Pinky Valve. Using 1% Lidocaine for local anesthesia and a micropuncture kit the right valve arterial access site was accessed. Angiography was performed through the micropuncture sheath to confirmed adequate position or any complications. Then a 8-Mozambican sheath was inserted into the left common femoral artery. This was followed by Preclosing the artery with three Perclose devices. The patient was fully heparinized with an ACT checked. Then a Supracore 0.035 wire was advanced into the ascending aorta and followed by dilating the common femoral artery with a 10-Mozambican dilator this was followed with an introduction of a 14 Mozambican Morrow Valve sheath. Then we used an AL-1 over a straight 300 cm Stiff Amplatz wire to cross the aortic valve with the tip left in the mid left ventricular chamber. This was followed by insertion of 6 Mozambican angled pigtail and reshaping of the Amplatz. Then pigtail was removed and a 20mm True balloon was inserted over the wire for balloon aortic valvuloplasty (BAV) with rapid pacing. After BAV was performed we inserted a 26mm S3 Morrow Pinky valve. The valve was mounted in a balloon in the ascending aorta and then advanced across the aortic valve using a pigtail catheter, fluoroscopy and the JUAN to confirm position. After confirmation of the position of the valve it was successfully deployed by balloon inflation during rapid pacing. Post deployment, there were no signs of paravalvular leaks on the JUAN. The patient tolerated the procedure well without complications. The catheter was removed. We pulled back the delivery system of the valve which was then removed of the body. Then the delivery sheath was then removed from the right femoral artery and a Perclosed. Finally, the pigtail was removed and then the sheath on the left side were removed with pressure held with a Perclose in the left femoral artery and a Mynx in the vein. This concluded the operation. Postoperative transesophageal echocardiogram demonstrated adequate function of the aortic bioprosthesis. The aortic valve area postprocedure was 2.1cm2 The post implant mean gradient was 5 mmHg. The post implant aortic valve maximal velocity 1.5. There was no aortic insufficiency or paravalvular leaks. COMPLICATIONS None. DISPOSITION -Admit to CVICU in stable condition for post cath care. -DAPT with aspirin and clopidogrel -Early extubation -OOB after bedrest -Telemetry monitoring -EP consult per protocol -Resume home medications MD Saniya Nina Pedro R MD Jun 09, 2017 16:25
[2017-06-09] MEDS: INSULIN NovoLIN REGULAR SUPPLEMENTAL SCALE SQ SCH ×2 (17:00→21:00)
[2017-06-09] MEDS ORDERED: CLOPIDOGREL 300 MG TAB PO ONE (18:00)
[2017-06-09] MEDS: ACETAMINOPHEN 325 MG TAB PO PRN (20:59)
[2017-06-09] MEDS: ATORVASTATIN 20 MG TAB PO SCH (21:00)
--- NOTE | 2017-06-09 23:11 | PD.PROCEDR ---
Procedure Note Procedure Procedure: Transesophageal Echocardiography Diagnosis: Severe aortic stenosis Indications: Perioperative planning for transcatheter aortic valve replacement Consent: Obtained Anesthesia: Gen. Endotracheal anesthesia Description of the Procedure: The patient was sedated and mechanically ventilated. The echo probe was inserted easily and without resistance. At the conclusion of the procedure, the echo probe was removed. Please see detailed echocardiogram report for formal findings. Preliminary Findings (not confirmed): Pre-procedure: 1) severe aortic stenosis 2) normal LV function 3) normal RV function 4) mobile mass in the left atrium 5) mild aortic insufficiency 6) [id number] Mitral regurgitation 7) no pericardial effusion 8) no evidence of intra-atrial shunt by color flow Doppler Post-procedure: 1) s/p successful transcatheter aortic valve replacement 2) no evidence of bioprosthetic valve stenosis 3) no perivalvular leak 4) [id number] mitral regurgitation 5) no pericardial effusion The patient tolerated the procedure well with no hemodynamic instability. There were no immediate complications noted. I personally performed the procedure. Quinton Isabel MD Jun 09, 2017 23:11
--- NOTE | 2017-06-09 23:19 | PD.CONS ---
[facility] Critical Care Medicine Consult Requested By Dr. Frazier Reason for Consult Perioperative management of medical comorbidities Primary Care Physician Pamella Thomas MD History of Present Illness Delayed note entry. The patient was seen and evaluated on arrival to the CVICU from the operating room. This is a 77-year-old female with a past history of symptomatic aortic stenosis , depressed LV systolic function, COPD, TIA, breast cancer, hypertension who presents for elective transcatheter valve replacement. Intraoperative events were complicated by a new finding of what appears to be left atrial myxoma, confirmed by Dr. morfin and Dr. Frazier. The patient's family was consented and continue to want to move forward with transcatheter aortic valve replacement. The remainder of the procedure was uncomplicated. She arrives the CVICU extubated, in stable condition, arousing from anesthesia. Due to her somnolence arousing from anesthesia no additional information is obtainable from the patient. Review of Systems ROS Limitations: Clinical Condition, Altered Mental Status ROS Arousing from anesthesia Past Family Social History Allergies: Coded Allergies: codeine (Verified Allergy, Severe, 06/09/17) simvastatin (Verified Allergy, Unknown, 06/09/17) Past Medical History Coronary artery disease status post drug-eluting stent to the RCA Severely reduced LV systolic dysfunction COPD TIA Breast cancer says was radiation therapy Hypertension Hyperlipidemia Past Surgical History None Reported Medications Albuterol Neb (Albuterol Sulfate) 0.63 Mg/3 Ml Neb Unknown Dose NEB Q4HR NEB PRN Lorazepam 0.5 Mg Tab 0.5 Mg PO BID PRN Levothyroxine (Levothyroxine Sodium) 112 Mcg Tab 112 Mcg PO DAILY Ketorolac Opth Drops 0.5% Drops 1 Drop EACH EYE DAILY Breo Ellipta Inh (Fluticasone/Vilanterol) 100-25 Mcg/Act Inh 1 Puff INH DAILY Use daily at the same time. Atorvastatin (Atorvastatin Calcium) 20 Mg Tab 20 Mg PO HS Escitalopram (Escitalopram Oxalate) 10 Mg Tab 10 Mg PO DAILY Clopidogrel (Clopidogrel Bisulfate) 75 Mg Tab 75 Mg PO DAILY Lisinopril 2.5 Mg Tab 2.5 Mg PO DAILY Carvedilol 6.25 Mg Tab 6.25 Mg PO BID Active Ordered Medications See MAR Family History Reviewed in chart and found to be noncontributory to her acute illness Social History Denies smoking, alcohol, drugs of abuse Physical Exam Vital Signs Vital Signs Date Time Temp Pulse Resp B/P (MAP) Pulse Ox O2 Delivery O2 Flow Rate FiO2 06/09/17 23:03 95 Nasal Cannula 2.00 06/09/17 20:00 96.8 91 16 141/72 (95) 97 139/67 (91) 06/09/17 20:00 97 Nasal Cannula 2.00 06/09/17 17:02 74 06/09/17 16:30 97.5 74 18 145/70 (95) 99 136/67 (90) 06/09/17 16:30 74 06/09/17 09:48 97.7 78 18 117/66 (83) 97 Physical Exam GENERAL: Frail female, lying in bed, arousing from anesthesia, no acute distress HEENT: Normocephalic. Atraumatic. Pupils equal, round, reactive, conjugate. Mucous membranes are moist NECK: Trachea is midline. There is no JVD. Right IJ introducer sheath with transvenous pacer, clean dry and intact CHEST: Unlabored. Nasal cannula oxygen. Equal chest rise. CARDIOVASCULAR: Normal rate, regular rhythm. Sinus by telemetry. Not currently paced. Transvenous pacer is set VVI backup rate of 50 ABDOMEN: Soft, nontender, nondistended. No guarding. MUSCULOSKELETAL: Pulses 2+. No peripheral edema. Bilateral groin sites clean dry and intact, no evidence of hematoma. Distal pulses palpable NEUROLOGICAL: RASS -2. Arousing from anesthesia. Nonfocal. Moves all extremities. Protect airway. Laboratory Laboratory Tests Test 06/09/17 09:23 White Blood Count 5.8 Red Blood Count 4.09 Hemoglobin 11.0 Hematocrit 33.1 Mean Corpuscular Volume 81.0 Mean Corpuscular Hemoglobin 26.9 Mean Corpuscular Hemoglobin Concent 33.2 Red Cell Distribution Width 15.1 Platelet Count 243 Mean Platelet Volume 7.3 Neutrophils (%) (Auto) 71.9 Lymphocytes (%) (Auto) 17.6 Monocytes (%) (Auto) 6.9 Eosinophils (%) (Auto) 2.7 Basophils (%) (Auto) 0.9 Neutrophils # (Auto) 4.2 Lymphocytes # (Auto) 1.0 Monocytes # (Auto) 0.4 Eosinophils # (Auto) 0.2 Basophils # (Auto) 0.1 CBC Comment DIFF FINAL Differential Comment Prothrombin Time 10.2 Prothromb Time International Ratio 0.9 Activated Partial Thromboplast Time 29.4 Blood Urea Nitrogen 13 Creatinine 0.56 Random Glucose 108 Calcium Level 9.3 Sodium Level 139 Potassium Level 4.0 Chloride Level 108 Carbon Dioxide Level 24.2 Anion Gap 7 Estimat Glomerular Filtration Rate 104 Result Diagram: 06/09/1792206/09/17922 Assessment and Plan Assessment and Plan Assessment: 77-year-old female postop day 0 status post transcatheter aortic valve replacement. Plan: s/p TAVR with groin access 06/09 - frequent neurovascular checks - close monitoring of uop - continue transvenous pacer backup VVI @ 50 - anticoagulation per Dr. Frazier - groin checks - mivf @ 125 cc/hr Hypertension - hold antihypertensives - goal sbp 120 - 180 - may need to add back anti-htn meds as needed Possible atrial myxoma - f/u with CT surgery and cardiology as an outpatient for additional work-up Hyperlipidemia - restart home statin Depression - continue home lexapro Anxiety - continue home prn ativan Hypothyroidism - continue home synthroid Critical care medicine will continue to follow along as long as patient remains in the CVICU. Quinton Isabel MD Jun 09, 2017 23:19
[2017-06-10] VITALS (7 sets, daily range): BP systolic 126–151; BP diastolic 55–81; PULSE 83–100; RESP 16–20; TEMP 97.5–99.1; O2SAT 94–99
[2017-06-10] MEDS: ACETAMINOPHEN 325 MG TAB PO PRN ×2 (03:17→09:36)
[2017-06-10 04:57] LABS: HEMATOCRIT 28.3 % (35.0-46.0); MEAN CELL VOLUME 81.3 FL (80.0-100.0); MEAN CORPUSCULAR HEMOGLOBIN 27.4 PG (27.0-34.0); MEAN CORPUSCULAR HGB CONC 33.7 % (32.0-36.0); PLATELET COUNT 211 TH/MM3 (150-450); RED BLOOD COUNT 3.48 MIL/MM3 (4.00-5.30); RED CELL DISTRIBUTION WIDTH 14.8 % (11.6-17.2); REVIEW FLAG FINAL; WHITE BLOOD COUNT 7.4 TH/MM3 (4.0-11.0)
[2017-06-10 05:24] LABS: BICARBONATE 22.9 MEQ/L (21.0-32.0)
[2017-06-10] MEDS ORDERED: LEVOTHYROXINE SODIUM 112 MCG TAB PO SCH (06:00)
[2017-06-10] MEDS: INSULIN NovoLIN REGULAR SUPPLEMENTAL SCALE SQ SCH ×4 (08:00→21:00)
--- NOTE | 2017-06-10 08:13 | PD.CARD.PN ---
Subjective Subjective Remarks no overnight events nauseous out of bed Objective Medications Current Medications Medications (Trade) Dose Ordered Sig/Ash Route Start Time Stop Time Status Last Admin Sodium Chloride 500 ml @ 30 mls/hr [id number] PRN IV 06/09/17 09:00 06/12/17 08:59 (Lopressor) 25 mg SMASH PIECER PRN PO 06/09/17 09:00 06/12/17 08:59 (Betadine 5% Antisepsis Kit) 1 applic SMASH PIECER PRN EACH NARE 06/09/17 09:00 06/12/17 08:59 06/09/17 09:04 (Chlorhexidine 2% Cloth) 3 pack SMASH PIECER PRN TOPICAL 06/09/17 09:00 06/12/17 08:59 06/09/17 09:04 (NovoLIN R INJ) See Protocol Table ... SMASH PIECER PRN SQ 06/09/17 09:00 06/12/17 08:59 Cefazolin Sodium/ Dextrose 50 ml @ 100 mls/hr SMASH PIECER PRN IV 06/09/17 09:15 06/12/17 09:14 06/09/17 14:17 (Bactroban Nasal 2% Oint) 1 applic SMASH PIECER PRN EACH NARE 06/09/17 09:15 06/12/17 09:14 (Tylenol) 650 mg Q4H PRN PO 06/09/17 16:15 06/10/17 16:14 06/10/17 03:17 (Atropine Inj) 0.5 mg UNSCH PRN IV PUSH 06/09/17 16:15 06/10/17 16:14 (Aspirin Chew) 81 mg DAILY PO 06/10/17 09:00 (Plavix) 75 mg DAILY PO 06/10/17 09:00 (D50w (Vial) Inj) 50 ml UNSCH PRN IV PUSH 06/09/17 16:15 (Glucagon Inj) 1 mg UNSCH PRN OTHER 06/09/17 16:15 (NovoLIN R SUPPLEMENTAL SCALE) 1 ACHS SLIDING SCALE SQ 06/09/17 17:00 (Lipitor) 20 mg HS PO 06/09/17 21:00 06/09/17 21:00 (Lexapro) 10 mg DAILY PO 06/10/17 09:00 (Breo Ellipta 100-25 Inh) 1 puff DAILY INH 06/10/17 09:00 (Acular 0.5% Opth Soln) 1 drop DAILY EACH EYE 06/10/17 09:00 (Synthroid) 112 mcg DAILY@0600 PO 06/10/17 06:00 06/10/17 06:17 (Ativan) 0.5 mg BID PRN PO 06/09/17 16:30 (Prinivil) 2.5 mg DAILY PO 06/10/17 09:00 (Zofran Inj) 4 mg STAT ONCE IV PUSH 06/10/17 08:15 06/10/17 08:16 Vital Signs / I&O Vital Signs Date Time Temp Pulse Resp B/P (MAP) Pulse Ox O2 Delivery O2 Flow Rate FiO2 06/10/17 03:00 88 06/10/17 03:00 99.1 89 16 139/74 (95) 97 151/65 (93) 06/09/17 23:30 97.5 104 18 136/76 (96) 97 141/71 (94) 06/09/17 23:03 95 Nasal Cannula 2.00 06/09/17 23:00 95 06/09/17 20:00 96.8 91 16 141/72 (95) 97 139/67 (91) 06/09/17 20:00 97 Nasal Cannula 2.00 06/09/17 19:00 88 06/09/17 17:02 74 06/09/17 16:30 97.5 74 18 145/70 (95) 99 136/67 (90) 06/09/17 16:30 74 06/09/17 09:48 97.7 78 18 117/66 (83) 97 I/O 06/09/17 06/09/17 06/09/17 06/10/17 06/10/17 06/10/17 07:00 15:00 23:00 07:00 15:00 23:00 Intake Total 495 ml 2460 ml Output Total 120 ml 1175 ml Balance 375 ml 1285 ml Intake Oral 240 ml 960 ml IV Total 255 ml 1500 ml Output Urine Total 120 ml 1175 ml # Bowel Movements 0 0 Physical Exam GENERAL: Well-nourished, well-developed patient. SKIN: Warm and dry. HEAD: Normocephalic. EYES: No scleral icterus. No injection or drainage. NECK: Supple, trachea midline. + JVD or lymphadenopathy. CARDIOVASCULAR: Regular rate and rhythm without murmurs, gallops, or rubs. RESPIRATORY: Breath sounds equal bilaterally +rales No accessory muscle use. GASTROINTESTINAL: Abdomen soft, non-tender, nondistended. EXTREMITIES: No cyanosis, or edema. NEUROLOGICAL: Awake, alert, and oriented x 3. Non-focal. Laboratory Laboratory Tests Test 06/09/17 09:23 06/10/17 04:30 White Blood Count 5.8 TH/MM3 7.4 TH/MM3 Red Blood Count 4.09 MIL/MM3 3.48 MIL/MM3 Hemoglobin 11.0 GM/DL 9.5 GM/DL Hematocrit 33.1 % 28.3 % Mean Corpuscular Volume 81.0 FL 81.3 FL Mean Corpuscular Hemoglobin 26.9 PG 27.4 PG Mean Corpuscular Hemoglobin Concent 33.2 % 33.7 % Red Cell Distribution Width 15.1 % 14.8 % Platelet Count 243 TH/MM3 211 TH/MM3 Mean Platelet Volume 7.3 FL 7.4 FL Neutrophils (%) (Auto) 71.9 % Lymphocytes (%) (Auto) 17.6 % Monocytes (%) (Auto) 6.9 % Eosinophils (%) (Auto) 2.7 % Basophils (%) (Auto) 0.9 % Neutrophils # (Auto) 4.2 TH/MM3 Lymphocytes # (Auto) 1.0 TH/MM3 Monocytes # (Auto) 0.4 TH/MM3 Eosinophils # (Auto) 0.2 TH/MM3 Basophils # (Auto) 0.1 TH/MM3 CBC Comment DIFF FINAL Differential Comment Prothrombin Time 10.2 SEC Prothromb Time International Ratio 0.9 RATIO Activated Partial Thromboplast Time 29.4 SEC Blood Urea Nitrogen 13 MG/DL 8 MG/DL Creatinine 0.56 MG/DL 0.38 MG/DL Random Glucose 108 MG/DL 122 MG/DL Calcium Level 9.3 MG/DL 8.3 MG/DL Sodium Level 139 MEQ/L 142 MEQ/L Potassium Level 4.0 MEQ/L 4.0 MEQ/L Chloride Level 108 MEQ/L 112 MEQ/L Carbon Dioxide Level 24.2 MEQ/L 22.9 MEQ/L Anion Gap 7 MEQ/L 7 MEQ/L Estimat Glomerular Filtration Rate 104 ML/MIN 163 ML/MIN Assessment and Plan Problem List: (1) Aortic stenosis, severe ICD Codes: I35.0 - Nonrheumatic aortic (valve) stenosis Status: Chronic Plan: s/p Right TF 26mm S3 Valve. Acute on chronic systolic heart failure. Recommendations: 1. DAPT ASA and Plavix 2. Aggressive medical management for CAD 3. Encourage ambulation and incentive spirometry 4. PT/OT 5. Appreciate EP recs 6. D/C TPM, art line 7. Lasix 20mg IV (2) Exertional dyspnea ICD Codes: R06.09 - Other forms of dyspnea (3) Diastolic CHF due to valvular disease ICD Codes: I38 - Endocarditis, valve unspecified; I50.30 - Unspecified diastolic (congestive) heart failure Tomas Kothari MD Jun 10, 2017 08:13
[2017-06-10] MEDS ORDERED: ONDANSETRON HCL 4 MG/2 ML VIAL IV PUSH ONE (08:15)
[2017-06-10] MEDS ORDERED: KETOROLAC TROMETHAMINE 0.5% OPHT SOLN 5 ML BTL EACH EYE SCH (09:00)
[2017-06-10] MEDS ORDERED: FUROSEMIDE 20 MG/2 ML VIAL IV PUSH ONE (09:00)
[2017-06-10] MEDS ORDERED: CLOPIDOGREL 75 MG TAB PO SCH (09:00)
--- NOTE | 2017-06-10 09:02 | HHI.DS ---
Discharge Summary Admission Date Jun 09, 2017 at 08:33 Discharge Date: Jun 10, 2017 Admitting Diagnosis Severe Symptomatic Aortic Stenosis (1) Aortic stenosis, severe Diagnosis: Principal ICD Codes: I35.0 - Nonrheumatic aortic (valve) stenosis Status: Chronic (2) Exertional dyspnea Diagnosis: Secondary ICD Codes: R06.09 - Other forms of dyspnea (3) Diastolic CHF due to valvular disease Diagnosis: Secondary ICD Codes: I38 - Endocarditis, valve unspecified; I50.30 - Unspecified diastolic (congestive) heart failure Procedures Right TF TAVR 26mm S3 Brief History 77 y/o F with severe symptomatic , intermediate risk for AVR admitted for TAVR. CBC/BMP: 06/10/17 0430 06/10/17 0430 Significant Findings Laboratory Tests Test 06/09/17 09:23 06/10/17 04:30 Hemoglobin 11.0 GM/DL (11.6-15.3) 9.5 GM/DL (11.6-15.3) Hematocrit 33.1 % (35.0-46.0) 28.3 % (35.0-46.0) Mean Corpuscular Hemoglobin 26.9 PG (27.0-34.0) Neutrophils (%) (Auto) 71.9 % (16.0-70.0) Random Glucose 108 MG/DL (74-106) 122 MG/DL (74-106) Chloride Level 108 MEQ/L (98-107) 112 MEQ/L (98-107) Red Blood Count 3.48 MIL/MM3 (4.00-5.30) Creatinine 0.38 MG/DL (0.50-1.00) Calcium Level 8.3 MG/DL (8.5-10.1) PE at Discharge GENERAL: Well-nourished, well-developed patient. SKIN: Warm and dry. HEAD: Normocephalic. EYES: No scleral icterus. No injection or drainage. NECK: Supple, trachea midline. No JVD or lymphadenopathy. CARDIOVASCULAR: Regular rate and rhythm without murmurs, gallops, or rubs. RESPIRATORY: Breath sounds equal bilaterally. No accessory muscle use. GASTROINTESTINAL: Abdomen soft, non-tender, nondistended. EXTREMITIES: No cyanosis, or edema. NEUROLOGICAL: Awake, alert, and oriented x 3. Non-focal. Hospital Course underwent successful TAVR with a 26mm S3 valve thru the right TF. No complications. No events overnight. Acute of chronic diastolic heart failure which was treated with IV Lasix. Ambulating without difficulty and chest pain free. Stable to be discharge home today. Pt Condition on Discharge: Good Discharge Disposition: Discharge Home Discharge Instructions DIET: Follow Instructions for: Heart Healthy Diet Speech Therapy-Diet Recommenda: Regular Activities you can perform: Weight Bearing as David Continued Medications: Albuterol Neb (Albuterol Neb) 0.63 Mg/3 Ml Neb Unknown Dose NEB Q4HR NEB PRN for SHORTNESS OF BREATH, #25 NEBULE 0 Refills Atorvastatin (Atorvastatin) 20 Mg Tab 20 MG PO HS for Cholesterol Management, #30 TAB 0 Refills Carvedilol (Carvedilol) 6.25 Mg Tab 6.25 MG PO BID, #60 TAB 0 Refills Clopidogrel (Clopidogrel) 75 Mg Tab 75 MG PO DAILY for Blood Clot Prevention, #30 TAB 0 Refills Escitalopram (Escitalopram) 10 Mg Tab 10 MG PO DAILY, #30 TAB 0 Refills Fluticasone-Vilanterol Inh (Breo Ellipta Inh) 100-25 Mcg/Act Inh 1 PUFF INH DAILY, #1 INHALER 0 Refills Use daily at the same time. Ketorolac Opth Drops (Ketorolac Opth Drops) 0.5% Drops 1 DROP EACH EYE DAILY for Pain/Inflammation, #5 ML 0 Refills Levothyroxine (Levothyroxine) 112 Mcg Tab 112 MCG PO DAILY for Thyroid, #30 TAB 0 Refills Lisinopril (Lisinopril) 2.5 Mg Tab 2.5 MG PO DAILY, #30 TAB 0 Refills Lorazepam (Lorazepam) 0.5 Mg Tab 0.5 MG PO BID PRN for ANXIETY, TAB 0 Refills Tomas Kothari MD Jun 10, 2017 09:02
[2017-06-10] MEDS: CARVEDILOL 6.25 MG TAB PO SCH ×2 (09:22→21:57)
[2017-06-10] MEDS: CLOPIDOGREL 75 MG TAB PO SCH (09:23)
[2017-06-10] MEDS: ASPIRIN 81 MG CHEW TAB PO SCH (09:23)
[2017-06-10] MEDS: LISINOPRIL 5 MG TAB PO SCH (09:24)
[2017-06-10] MEDS: ESCITALOPRAM OXALATE 10 MG TAB PO SCH (09:24)
[2017-06-10] MEDS: FLUTICASONE 100 MCG/VILANTEROL 25 MCG INHALER INH SCH (09:25)
--- NOTE | 2017-06-10 09:36 | PD.CAR.PN ---
CVT Progress Note Subjective/Hospital Course: 77-year-old female with a past history of symptomatic aortic stenosis, depressed LV systolic function, COPD, TIA, breast cancer, hypertension who presents for elective transcatheter valve replacement. Intraoperative events were complicated by a new finding of what appears to be left atrial myxoma, confirmed by Dr. morfin and Dr. Frazier. surgery 06/09 Transcatheter aortic valve replacement with a 26 Pinky 3 tissue valve Balloon aortic valvuloplasty with a 20 True Balloon Percutaneous bilateral femoral artery access with Perclose closure on the right 06/10 pt had some nausea last pm , improved temp PP removed, will have cordis removed also Objective: GENERAL: SKIN: Warm and dry.b ecchymosis right IJ site, also dressing to both groins, ecchymosis left groin + distal pulses HEAD: Normocephalic. EYES: No scleral icterus. No injection or drainage. NECK: Supple, trachea midline. No JVD or lymphadenopathy. CARDIOVASCULAR: Regular rate and rhythm without murmurs, gallops, or rubs. 1/6sm RESPIRATORY: Breath sounds equal bilaterally. No accessory muscle use. GASTROINTESTINAL: Abdomen soft, non-tender, nondistended. MUSCULOSKELETAL: No cyanosis, or edema. BACK: Nontender without obvious deformity. No CVA tenderness. Vital Signs Date Time Temp Pulse Resp B/P (MAP) Pulse Ox O2 Delivery O2 Flow Rate FiO2 06/10/17 08:00 83 06/10/17 08:00 98 Nasal Cannula 2.00 06/10/17 08:00 97.5 83 16 143/81 (101) 98 Arterial Line 06/10/17 03:00 88 06/10/17 03:00 99.1 89 16 139/74 (95) 97 151/65 (93) 06/09/17 23:30 97.5 104 18 136/76 (96) 97 141/71 (94) 06/09/17 23:03 95 Nasal Cannula 2.00 06/09/17 23:00 95 06/09/17 20:00 96.8 91 16 141/72 (95) 97 139/67 (91) 06/09/17 20:00 97 Nasal Cannula 2.00 06/09/17 19:00 88 06/09/17 17:02 74 06/09/17 16:30 97.5 74 18 145/70 (95) 99 136/67 (90) 06/09/17 16:30 74 06/09/17 09:48 97.7 78 18 117/66 (83) 97 Labs: Laboratory Tests Test 06/10/17 04:30 White Blood Count 7.4 TH/MM3 (4.0-11.0) Red Blood Count 3.48 MIL/MM3 (4.00-5.30) Hemoglobin 9.5 GM/DL (11.6-15.3) Hematocrit 28.3 % (35.0-46.0) Mean Corpuscular Volume 81.3 FL (80.0-100.0) Mean Corpuscular Hemoglobin 27.4 PG (27.0-34.0) Mean Corpuscular Hemoglobin Concent 33.7 % (32.0-36.0) Red Cell Distribution Width 14.8 % (11.6-17.2) Platelet Count 211 TH/MM3 (150-450) Mean Platelet Volume 7.4 FL (7.0-11.0) Blood Urea Nitrogen 8 MG/DL (7-18) Creatinine 0.38 MG/DL (0.50-1.00) Random Glucose 122 MG/DL (74-106) Calcium Level 8.3 MG/DL (8.5-10.1) Sodium Level 142 MEQ/L (136-145) Potassium Level 4.0 MEQ/L (3.5-5.1) Chloride Level 112 MEQ/L (98-107) Carbon Dioxide Level 22.9 MEQ/L (21.0-32.0) Anion Gap 7 MEQ/L (5-15) Estimat Glomerular Filtration Rate 163 ML/MIN (>89) Result Diagram: 06/10/17 0430 06/10/17 0430 (1) Aortic stenosis, severe Plan: s/p Right TF 26mm S3 Valve. Acute on chronic systolic heart failure. 1. DAPT ASA and Plavix 2. Aggressive medical management for CAD 3. Encourage ambulation and incentive spirometry 4. PT/OT for dc later today, defer further orders to Dr Frazier will sign off (2) Exertional dyspnea (3) Diastolic CHF due to valvular disease Margarita Cobos Jun 10, 2017 09:36
--- NOTE | 2017-06-10 09:47 | MB ---
cc: JAMARI PEREZ M.D. DATE OF CONSULTATION 06/09/17 ELECTROPHYSIOLOGY CONSULTATION REASON FOR CONSULTATION Status post TAVR left bundle branch block. HISTORY OF PRESENT ILLNESS Mrs. Cuevas is a 77-year-old female with history of TIA, breast cancer, aortic stenosis, high blood pressure, hyperlipidemia, ejection fraction around 20-25% who underwent transaortic valve replacement today. The patient has left bundle branch block. She has a temporary pacemaker and I was consulted for evaluation and management. The chart was reviewed. The patient was evaluated. ALLERGIES CODEINE AND SIMVASTATIN. SOCIAL HISTORY The patient denies smoking and drinking. FAMILY HISTORY Noncontributory to her current medical condition. MEDICATIONS At home she was on: 1. Plavix. 2. Lipitor. 3. Coreg. 4. Lisinopril. Currently she is on also: 1. Ancef. 2. Heparin. 3. Aspirin. REVIEW OF SYSTEMS Currently, she refers no chest pain, no chest discomfort. No dizziness. She feels tired but no fever. PHYSICAL EXAMINATION GENERAL: Alert, fully oriented. VITAL SIGNS: Blood pressure 145/70, pulse 74, respiratory rate 18. LUNGS: Ventilated. CARDIOVASCULAR: S1, S2 regular. No gallop, no murmur. ABDOMEN: Soft. No mass, no bruit. EXTREMITIES: No edema. Left subclavicular area with central line with temporary pacemaker. There is right area also with a central line. LABORATORY DATA Hemoglobin is 11. White blood cell 5.8. Potassium 4.0. Creatinine is 0.56. ASSESSMENT/RECOMMENDATION Mrs. Cuevas has recent TAVR. She has a baseline left bundle branch block. There is no significant change in electrocardiogram. She is stable. At this point my recommendation is observation. I tried to decrease the pacing output to 30. Device was a VVI. Despite that there was sensing. Erick was still delivered. To avoid shocking and because the patient does not need pacing at this point I am going to disconnect the wire to the pacer and standby if need pacing. This is going to be less likely the scenario. Instruction given to the nurses. If the patient is stable can be discharged home in the morning. I will see her only on a p.r.n. basis. MD ALO Ricks /5:34 PM /9:36 AM
[2017-06-10] MEDS: LORazepam 0.5 MG TAB PO PRN ×2 (13:47→22:04)
[2017-06-10] MEDS ORDERED: PROMETHAZINE INJ 25 MG/ML VIAL IM ONE (15:45)
[2017-06-10] MEDS ORDERED: SODIUM CHLORID 0.9% 500 ML IV ONE (16:30)
[2017-06-10] MEDS: ATORVASTATIN 20 MG TAB PO SCH (21:57)
[2017-06-10] MEDS ORDERED: ACETAMINOPHEN 325 MG TAB PO PRN (23:45)
[2017-06-11 03:00] VITALS: BP 138/71; PULSE 88; RESP 20; TEMP 97.9; O2SAT 99
[2017-06-11 08:00] VITALS: BP 163/80; PULSE 79; RESP 18; TEMP 98.4; O2SAT 94
[2017-06-11] MEDS: INSULIN NovoLIN REGULAR SUPPLEMENTAL SCALE SQ SCH (08:00)
--- NOTE | 2017-06-11 08:53 | PD.CARD.PN ---
Subjective Subjective Remarks Overnight events migraines/nauseous out of bed Objective Medications Current Medications Medications (Trade) Dose Ordered Sig/Ash Route Start Time Stop Time Status Last Admin Sodium Chloride 500 ml @ 30 mls/hr [id number] PRN IV 06/09/17 09:00 06/12/17 08:59 (Lopressor) 25 mg PROGRAM ENGINEER PRN PO 06/09/17 09:00 06/12/17 08:59 (Betadine 5% Antisepsis Kit) 1 applic PROGRAM ENGINEER PRN EACH NARE 06/09/17 09:00 06/12/17 08:59 06/09/17 09:04 (Chlorhexidine 2% Cloth) 3 pack PROGRAM ENGINEER PRN TOPICAL 06/09/17 09:00 06/12/17 08:59 06/09/17 09:04 (NovoLIN R INJ) See Protocol Table ... PROGRAM ENGINEER PRN SQ 06/09/17 09:00 06/12/17 08:59 Cefazolin Sodium/ Dextrose 50 ml @ 100 mls/hr PROGRAM ENGINEER PRN IV 06/09/17 09:15 06/12/17 09:14 06/09/17 14:17 (Bactroban Nasal 2% Oint) 1 applic PROGRAM ENGINEER PRN EACH NARE 06/09/17 09:15 06/12/17 09:14 (Aspirin Chew) 81 mg DAILY PO 06/10/17 09:00 06/10/17 09:23 (Plavix) 75 mg DAILY PO 06/10/17 09:00 06/10/17 09:23 (D50w (Vial) Inj) 50 ml UNSCH PRN IV PUSH 06/09/17 16:15 (Glucagon Inj) 1 mg UNSCH PRN OTHER 06/09/17 16:15 (NovoLIN R SUPPLEMENTAL SCALE) 1 ACHS SLIDING SCALE SQ 06/09/17 17:00 (Lipitor) 20 mg HS PO 06/09/17 21:00 06/10/17 21:57 (Lexapro) 10 mg DAILY PO 06/10/17 09:00 06/10/17 09:24 (Breo Ellipta 100-25 Inh) 1 puff DAILY INH 06/10/17 09:00 06/10/17 09:25 (Acular 0.5% Opth Soln) 1 drop DAILY EACH EYE 06/10/17 09:00 (Synthroid) 112 mcg DAILY@0600 PO 06/10/17 06:00 06/10/17 06:17 (Ativan) 0.5 mg BID PRN PO 06/09/17 16:30 06/10/17 22:04 (Prinivil) 2.5 mg DAILY PO 06/10/17 09:00 06/10/17 09:24 (Coreg) 6.25 mg BID PO 06/10/17 09:00 06/10/17 21:57 (Tylenol) 650 mg Q6H PRN PO 06/10/17 23:45 Vital Signs / I&O Vital Signs Date Time Temp Pulse Resp B/P (MAP) Pulse Ox O2 Delivery O2 Flow Rate FiO2 06/11/17 03:00 88 06/11/17 03:00 97.9 88 20 138/71 (93) 99 06/10/17 23:00 92 06/10/17 23:00 98.3 91 20 126/55 (78) 99 06/10/17 19:30 98.9 100 18 130/68 (88) 94 06/10/17 19:00 94 Room Air 06/10/17 19:00 100 06/10/17 15:00 87 06/10/17 15:00 97.8 87 18 136/80 (98) 99 06/10/17 11:45 83 06/10/17 11:45 97.8 83 18 144/77 (99) 95 06/10/17 10:50 16 I/O 06/10/17 06/10/17 06/10/17 06/11/17 06/11/17 06/11/17 07:00 15:00 23:00 07:00 15:00 23:00 Intake Total 2460 ml 650 ml 240 ml Output Total 1175 ml 1100 ml 625 ml Balance 1285 ml -450 ml -385 ml Intake Oral 960 ml 150 ml 240 ml IV Total 1500 ml 500 ml Output Urine Total 1175 ml 1100 ml 625 ml # Bowel Movements 0 0 0 Physical Exam GENERAL: Well-nourished, well-developed patient. SKIN: Warm and dry. HEAD: Normocephalic. EYES: No scleral icterus. No injection or drainage. NECK: Supple, trachea midline. + JVD or lymphadenopathy. CARDIOVASCULAR: Regular rate and rhythm without murmurs, gallops, or rubs. RESPIRATORY: Breath sounds equal bilaterally +rales No accessory muscle use. GASTROINTESTINAL: Abdomen soft, non-tender, nondistended. EXTREMITIES: No cyanosis, or edema. NEUROLOGICAL: Awake, alert, and oriented x 3. Non-focal. Assessment and Plan Problem List: (1) Aortic stenosis, severe ICD Codes: I35.0 - Nonrheumatic aortic (valve) stenosis Status: Chronic Plan: s/p Right TF 26mm S3 Valve. Acute on chronic systolic heart failure. Recommendations: 1. DAPT ASA and Plavix 2. Aggressive medical management for CAD 3. Encourage ambulation and incentive spirometry 4. PT/OT 5. Appreciate EP recs 6. Pain medication for headache Stable to d/c home later today (2) Exertional dyspnea ICD Codes: R06.09 - Other forms of dyspnea (3) Diastolic CHF due to valvular disease ICD Codes: I38 - Endocarditis, valve unspecified; I50.30 - Unspecified diastolic (congestive) heart failure Tomas Kothari MD Jun 11, 2017 08:53
[2017-06-11] MEDS ORDERED: KETOROLAC TROMETHAMINE 60 MG/2 ML (IM) VIAL IM ONE (09:00)
[2017-06-11] MEDS: ESCITALOPRAM OXALATE 10 MG TAB PO SCH (09:33)
[2017-06-11] MEDS: CLOPIDOGREL 75 MG TAB PO SCH (09:33)
[2017-06-11] MEDS: CARVEDILOL 6.25 MG TAB PO SCH (09:34)
[2017-06-11] MEDS: ASPIRIN 81 MG CHEW TAB PO SCH (09:34)
[2017-06-11] MEDS: LISINOPRIL 5 MG TAB PO SCH (09:36)
[2017-06-11] MEDS: FLUTICASONE 100 MCG/VILANTEROL 25 MCG INHALER INH SCH (09:36)
--- NOTE | 2017-06-11 23:25 | EKG ---
Date Performed: 06/10/2017 Time Performed: 15:19:34 PTAGE: 77 years EKG: Sinus rhythm . Left bundle branch block Abnormal ECG NO PREVIOUS TRACING DOCTOR: Marcos Javier Interpretating Date/Time 06/11/2017 23:24:28
== END 2017-06-11 11:40 | disposition home or self-care (01) | DRG 266 ==
LOC: HDIC 08:33 → HCVI 16:23
PROVIDERS: ADMIT Radiology Vascular & Interventional Radiology; ATTEND Radiology Vascular & Interventional Radiology
PROC: 02RF38Z Replacement of Aortic Valve with Zooplastic Tissue, Percutaneous Approach (ICD-10-PCS; principal; 2017-06-09 15:00)
PROC: B246ZZ4 Ultrasonography of Right and Left Heart, Transesophageal (ICD-10-PCS; 2017-06-09 15:00)
DX: I35.0 Nonrheumatic aortic (valve) stenosis (principal); I50.43 Acute on chronic combined systolic (congestive) and diastolic (congestive) heart failure; J44.9 Chronic obstructive pulmonary disease, unspecified; E11.9 Type 2 diabetes mellitus without complications; I44.7 Left bundle-branch block, unspecified; I11.0 Hypertensive heart disease with heart failure; E78.5 Hyperlipidemia, unspecified; I25.10 Atherosclerotic heart disease of native coronary artery without angina pectoris; F32.9 Major depressive disorder, single episode, unspecified; F41.9 Anxiety disorder, unspecified; D15.1 Benign neoplasm of heart; E03.9 Hypothyroidism, unspecified; Z00.6 Encounter for examination for normal comparison and control in clinical research program; Z85.3 Personal history of malignant neoplasm of breast; Z92.3 Personal history of irradiation; Z86.73 Personal history of transient ischemic attack (TIA), and cerebral infarction without residual deficits; Z95.5 Presence of coronary angioplasty implant and graft
CPT/HCPCS: 33210; 33361; 80048; 82948; 85002; 85025; 85027; 85610; 85730; 86850; 86900; 86901; 86920; 92986; 93005; C1760; C1769; C1893; G0269; J0690; J1644; J1940; J2405; J2550; J2720; J3370; J7030; J7040; J7050; Q9967